=== PATIENT | female | born 1995 | race Caucasian/White ===

== ENCOUNTER → 2021-04-16 10:33 | Outpatient (CLI) | payer OTHER, SELFPAY ==
[2021-04-16 12:37] LABS: Urine N gonorrhoeae NOT DETECTED
[2021-04-16 12:46] LABS: Urine Chlamydia NOT DETECTED
== END ==
PROVIDERS: Visit Provider Physician Assistant
DX: S30.824A Blister (nonthermal) of vagina and vulva, initial encounter (principal); Z20.2 Contact with and (suspected) exposure to infections with a predominantly sexual mode of transmission
CPT/HCPCS: 87210; 87491; 87591

== ENCOUNTER → 2022-10-05 13:07 | Outpatient (CLI) | payer OTHER, SELFPAY ==
[2022-10-05 18:20] LABS: HIV 1 & 2 Ab/Ag 4th Gen Combo NEGATIVE (NEGATIVE); Hepatitis B Surface Antigen NEGATIVE s/c (NEGATIVE)
[2022-10-07 05:13] LABS: RPR Screen Non Reactive (Non Reactive)
[2022-10-07 12:54] LABS: HSV1IGG 0.95 index (0.00-0.90)
== END ==
PROVIDERS: Referring Provider Nurse Practitioner Family; Visit Provider Nurse Practitioner Family
DX: N89.8 Other specified noninflammatory disorders of vagina (principal)
CPT/HCPCS: 36415; 86592; 86695; 86696; 87340; 87389